=== PATIENT | male | born 1980 | race American Indian/Alaskan Native ===

== ENCOUNTER 2018-10-20 09:11 | Day surgery (SDC) | payer BC ==
[2018-10-19 18:15] LABS: Absolute Lymphocytes (CBC) 2.4 K/uL (0.7-4.9); Absolute Monocytes 0.9 K/uL (0.1-1.3); Absolute Neutrophil 7.1 K/uL (1.8-8.0); Basophils % 0.7 % (0-1.3); Hematocrit 46.5 % (39.6-49.0); Lymphocytes % 22.6 % (15.3-44.8); Monocytes % 8.3 % (3.3-12.3); RBC Red Blood Cell Count 5.17 M/uL (4.33-5.43)
[2018-10-19 18:33] LABS: Potassium 4.2 mmol/L (3.5-5.1)
[2018-10-20] MEDS ORDERED: Ringers Lactate 1,000 ML IV ONE (09:44)
[2018-10-20] MEDS ORDERED: PROPOFOL 200 MG/20 ML VIAL IV ONE (10:25)
[2018-10-20] MEDS ORDERED: MIDAZOLAM HCL 2 MG/2 ML INJ ONE (10:26)
[2018-10-20] MEDS ORDERED: LIDOCAINE 2% MPF 5 ML VIAL ONE (10:26)
[2018-10-20] MEDS ORDERED: FENTANYL CITR 100 MCG/2 ML ONE ×2 (10:26→10:55)
[2018-10-20] MEDS ORDERED: ONDANSETRON 4 MG/2 ML VIAL ONE (10:28)
[2018-10-20] MEDS ORDERED: BUPIVACAINE 0.5% PF 10 ML VIAL ONE (10:31)
--- NOTE | 2018-10-20 11:00 | P.BOP ---
Preoperative diagnosis: infected back mass with cellulitis, abscess Postoperative diagnosis: same Primary procedure: Excisional biopsy of infected back mass with abscess drainage 5x5cm Estimated blood loss: <5cc Specimen: mass. abscess Findings: abscess with loculations Anesthesia: General Complications: None Drain(s): Other Transferred to: Recovery Room Condition: Good
[2018-10-20] MEDS ORDERED: CODEINE 30MG/APAP 300MG TAB ONE (12:29)
--- NOTE | 2018-10-20 22:48 | OP ---
Date of Procedure: 10/20/2018 Surgeon: Ron Reyes MD Preoperative Diagnosis: Infected back mass with cellulitis and abscess. Postoperative Diagnosis: Infected back mass with cellulitis and abscess. Procedure: Excisional biopsy of infected back mass with abscess drainage, 5 x 5 cm. Finding: Abscess with loculations and inflammatory mass. Anesthesia: General plus local. Indication: This is a case of a male who come to us with a back mass that is getting red. He took s ome medication. Even, he attempted to drain this himself with his , still unsuccessful, got wors e, more painful, more swollen, came to the ER with severe pain and erythema in the last few hours, an d booked surgery for excisional biopsy of the mass with drainage of an abscess. The benefits, altern atives, and risks of the procedure were explained, which include, but not limited to infection, bleed ing, damage to adjacent structures, anesthesia complication, nonhealing wound, PA, and even . Geovanny mathews also understands this may not relieve any symptoms. He might need more than one surgical intervent ion. He also understands the importance of wound care, and his will be doing the wound care. Geovanny mathews signed a consent. Description Of Procedure: The patient was brought to the operating room, placed in supine position. Anesthesia was done without complication previously in the holding room. We marked the area, me and the patient. The patient was placed in a lateral decubitus position with proper protection. A time -out was called. The area was prepped and draped in a sterile fashion. A wedge incision was made to include part of the skin and taken all the way down to deep subcutaneous tissue. There is an absces s in the bottom with loculations open, it is about 5 x 5 cm. The patient's inflammatory mass was rem lavern with abscess drained. Pus was cultured and area was irrigated. Hemostasis obtained. Local ane sthesia was applied, and the area was packed with wet-to-dry dressing. The patient tolerated the pro cedure well. The patient was sent to recovery in stable condition. CHARLEE/NANCY Voice ID: [id number] Report ID: [id number]
--- NOTE | 2018-10-20 22:48 | DS ---
Date of Discharge: 10/20/2018 Diagnosis: Infected back mass with cellulitis and abscess. Procedure: Excisional biopsy of infected back mass with abscess drainage, 5 x 5 cm. Disposition: Home. Activity: As tolerated. No heavy lifting. Discharge Instructions: Follow up in my office in 1 week. Call for an appointment [phone]. Wet-to -dry dressing with normal saline daily. Medications: Include Tylenol No. 3 q.4 hours p.r.n. pain and Bactrim DS p.o. b.i.d. CHARLEE/NANCY Voice ID: [id number] Report ID: [id number]
== END 2018-10-20 12:55 | disposition home or self-care (01) ==
LOC: OR 09:11
PROVIDERS: ATTEND Surgery
PROC: 0JB70ZZ Excision of Back Subcutaneous Tissue and Fascia, Open Approach (ICD-10-PCS; 2018-10-20)
PROC: 0J970ZZ Drainage of Back Subcutaneous Tissue and Fascia, Open Approach (ICD-10-PCS; principal; 2018-10-20 11:30)
DX: L72.0 Epidermal cyst (principal); L02.212 Cutaneous abscess of back [any part, except buttock and flank]; I10 Essential (primary) hypertension
CPT/HCPCS: 36415; 80048; 85025; 87070; 87075; 87205; 88304; 88305; J2250; J2405; J2704; J3010